=== PATIENT | male | born 1950 | race Caucasian/White ===

== ENCOUNTER 2022-03-17 09:00 | Day surgery (SDC) | payer MEDICARE ==
[2022-03-16 08:39] LABS: BASOPHILS % (AUTO) 0.6 % (0-1); EOSINOPHILS # (AUTO) 0.2 X10'3 (0-0.9); EOSINOPHILS % (AUTO) 2.8 % (0-6); HEMATOCRIT 41.1 % (42.0-52.0); HEMOGLOBIN 14.3 g/dl (14.0-17.9); LYMPHOCYTES # (AUTO) 1.7 X10'3 (1.1-4.8); LYMPHOCYTES % (AUTO) 28.6 % (21-51); MEAN CORPUSCULAR HEMOGLOBIN 32.5 PG (27.0-31.0); MEAN CORPUSCULAR HGB CONC 34.7 g/dL (33.0-36.5); MEAN CORPUSCULAR VOLUME 93.7 FL (78-98); MEAN PLATELET VOLUME 6.8 FL (7.4-10.4); MONOCYTES # (AUTO) 0.5 X10'3 (0-0.9); MONOCYTES % (AUTO) 8.2 % (2-12); NEUTROPHILS # (AUTO) 3.5 X10'3 (1.8-7.7); NEUTROPHILS % (AUTO) 59.8 % (42-75); PLATELET COUNT 171 X10'3 (140-440); RED BLOOD COUNT 4.39 X10'6 (4.70-6.10); RED CELL DISTRIBUTION WIDTH 13.1 % (11.5-14.5); WHITE BLOOD COUNT 5.9 X10'3 (4.5-11.0)
[2022-03-16 08:48] LABS: ANION GAP 10 (8-16); BLOOD UREA NITROGEN 38 MG/DL (7-18); CALCIUM 9.5 MG/DL (8.5-10.1); CHLORIDE 104 MMOL/L (99-107); CREATININE 1.15 MG/DL (0.60-1.10); GLUCOSE 123 MG/DL (70-104); POTASSIUM 3.7 MMOL/L (3.5-5.1); SODIUM 139 MMOL/L (135-145); TOTAL CARBON DIOXIDE 24.8 MMOL/L (24-32); eGFR 62 ML/MIN
[~2022-03-17] VITALS: Ht 188 cm; Wt 90.8 kg
[2022-03-17] VITALS (11 sets, daily range): BP systolic 93–153; BP diastolic 50–74
[~2022-03-17 09:00] MED LIST: ALLO100T PO; AMIT-189 PO; ASPI-1265 PO; CLOP75TA34 PO; ENAL2.5T40 PO; FOLI0.4T6 PO; GLUC1CAP17 PO; LOP25T PO; LOVA20TA2 PO; MAGN400C PO; MORP30TA60 PO; POLY17PO10 PO; SULF500T59 PO
[2022-03-17] MEDS ORDERED: METF-900 PO (09:35)
[2022-03-17] MEDS ORDERED: TERA5CAP4 PO (09:35)
[2022-03-17] MEDS ORDERED: VITA-268 PO (09:35)
[2022-03-17] MEDS ORDERED: OMEG1CAP61 PO (09:35)
[2022-03-17] MEDS ORDERED: DULO-31 PO (09:35)
[2022-03-17] MEDS ORDERED: acetylcysteine 200 MG/ml 4ml vial PO PRN (09:59)
[2022-03-17] MEDS ORDERED: diphenhydrAMINE 25mg capsule PO PRN (10:00)
[2022-03-17] MEDS ORDERED: LIDOcaine/PRILOcaine 5gm cream TP ONE (10:00)
[2022-03-17] MEDS ORDERED: normal saline 1,000 ML IV SCH (10:00)
[2022-03-17] MEDS ORDERED: LIDOcaine 1% (10mg/ml) 2ml vial ONE (10:33)
[2022-03-17] MEDS ORDERED: midazolam 1 mg/ML 2ml injection ONE (10:33)
[2022-03-17] MEDS ORDERED: verapamil 2.5 mg/ml inj IV ONE (10:33)
[2022-03-17] MEDS ORDERED: heparin 1,000unit/ml 10ml vial 10 ML ONE (10:33)
[2022-03-17] MEDS ORDERED: fentaNYL/PF 50MCG/1 ML 2ML syringe ONE (10:33)
[2022-03-17] MEDS ORDERED: nitroGLYCERIN-Tridil 50MG/D5W 250 ML IV ONE (10:34)
[2022-03-17] MEDS ORDERED: iohexol 350MG/ML 100ml bottle IV ONE (10:34)
[2022-03-17 11:01] LABS: APTT 28 SECONDS (22-32)
[2022-03-17] MEDS ORDERED: normal saline 1000ml 1,000 ML IV SCH (12:55)
== END 2022-03-17 17:56 | disposition home or self-care (01) ==
LOC: SSTAY O 09:00
PROVIDERS: ATTEND Internal Medicine Cardiovascular Disease
DX: I25.10 Atherosclerotic heart disease of native coronary artery without angina pectoris (principal); R94.39 Abnormal result of other cardiovascular function study; I25.2 Old myocardial infarction; I10 Essential (primary) hypertension; E78.5 Hyperlipidemia, unspecified; I35.1 Nonrheumatic aortic (valve) insufficiency; G47.30 Sleep apnea, unspecified; Z98.890 Other specified postprocedural states; Z79.899 Other long term (current) drug therapy; Z79.01 Long term (current) use of anticoagulants; Z95.5 Presence of coronary angioplasty implant and graft; Z82.49 Family history of ischemic heart disease and other diseases of the circulatory system
CPT/HCPCS: 36415; 76937; 80048; 85025; 85610; 85730; 93005; 93458; 93567; 99152; 99153; A6258; C1769; C1894; J1644; J2250; J3010; J3490; J7030; Q0163; Q9967; A4620; A5120; A6402